=== PATIENT | female | born 1960 | race Hispanic/Latino ===

== ENCOUNTER 2019-05-19 09:50 | Day surgery (SDC) | payer MEDICARE ==
--- NOTE | 2019-05-19 09:37 | Short Stay Summary ---
Short Stay Documentation Date of service: 05/19/19 - History H&P: obtained from office - Allergies and Medications Current Medications: Allergies No Known Allergies Allergy (Verified 05/09/19 18:04) Home Medications Medication Instructions Recorded Confirmed Last Taken Type ALBUTEROL Inhaler (OR & NICU) INHALATION PRN 05/09/19 Unknown History Atomoxetine HCl 25 mg PO BID 05/09/19 05/09/19 Unknown History Atorvastatin 20 mg PO DAILY 05/09/19 05/09/19 Unknown History Budesonide/Formoterol Fumarate 4.5 mcg INHALATION BID 05/09/19 05/09/19 Unknown History [Symbicort 160-4.5 Mcg Inhaler] Celecoxib [celeBREX] 200 mg PO DAILY 05/09/19 05/09/19 Unknown History Citalopram 40 mg PO DAILY 05/09/19 05/09/19 Unknown History Fish Oil 3,000 mg PO DAILY 05/09/19 05/09/19 Unknown History Gabapentin 300 mg PO TID 05/09/19 05/09/19 Unknown History Multi For Her 50 Plus Softgel 50 mg PO DAILY 05/09/19 05/09/19 Unknown History Omeprazole 40 mg PO DAILY 05/09/19 05/09/19 Unknown History Promethazine 25 mg PO PRN 05/09/19 05/09/19 Unknown History Remeron 30mg TAB 30 mg HS 05/09/19 05/09/19 Unknown History Senna 2 tab PO HS 05/09/19 05/09/19 Unknown History Zanaflex 4mg TAB 4 mg PO DAILY 05/09/19 05/09/19 Unknown History Zyrtec 10mg tab 10 mg PO DAILY 05/09/19 05/09/19 Unknown History buPROPion 300 mg PO DAILY 05/09/19 05/09/19 Unknown History busPIRone 1 mg PO DAILY 05/09/19 05/09/19 Unknown History busPIRone 5 mg PO DAILY 05/09/19 05/09/19 Unknown History clonazePAM 1 mg PO BID 05/09/19 05/09/19 Unknown History oxyCODONE 30 mg PO 4XD 05/09/19 05/09/19 Unknown History - Brief post op/procedure progress note Date of procedure: 05/19/19 Pre-op diagnosis: bladder lesion Procedure: cysto rpg; bx small lesior right intramural ureter biopsy post right and left wall Anesthesia: GETA Findings: tiny papillary lesion over right intramural ureter Surgeon: KATHERIN POTTS Estimated blood loss: minimal Pathology: list Specimen disposition: to lab Condition: stable - Hospital course Hospital course: or pacu home - Disposition Condition at discharge: Good Disposition: DC-01 TO HOME OR SELFCARE Short Stay Discharge Plan Activity: advance as tolerated Diet: advance as tolerated Follow up with: KATHERIN POTTS MD [Staff Physician] - 14 Days
[2019-05-19] MEDS ORDERED: ceFAZolin/STERILE WATER 2 GM/20 ML SYRINGE IV NR (10:18)
[2019-05-19] MEDS ORDERED: LACTATED RINGERS 1,000 ML ONE (10:41)
--- NOTE | 2019-05-19 10:47 | Anesthesia Consultation ---
Anesthesia Consult and Med Hx Date of service: 05/19/19 - Airway Anesthetic Teeth Evaluation: Poor (multiple missing teeth), Chipped (broken left upper premolar) ROM Head & Neck: Adequate Mental/Hyoid Distance: Adequate Mallampati Class: Class I Intubation Access Assessment: Good - Pulmonary Exam CTA: Yes - Cardiac Exam Cardiac Exam: RRR - Pre-Operative Health Status ASA Pre-Surgery Classification: ASA2 Proposed Anesthetic Plan: General - Pulmonary Hx Smoking: No Hx Asthma: Yes Hx Respiratory Symptoms: No Hx Sleep Apnea: Yes (compliant with CPAP) - Cardiovascular System Hx Hypertension: No (asymptomatic hypotension) Hx Cardia Arrhythmia: Yes (asymptomatic bradycardia) Hx Pacemaker: No - Central Nervous System CVA: No Hx Back Pain: Yes (and neck; fibromyalgia) Hx Psychiatric Problems: Yes (depression/anxiety, takes clonazepam daily) - Gastrointestinal Hx Gastroesophageal Reflux Disease: Yes (controlled) - Endocrine Hx Renal Disease: No Hx Liver Disease: No Hx Insulin Dependent Diabetes: No Hx Non-Insulin Dependent Diabetes: No Hx Thyroid Disease: No - Hematic Hx Anemia: No - Other Systems Hx Obesity: Yes (BMI 32) - Additional Comments Anesthesia Medical History Comments: No hx anesthetic complications. Used albuterol daily for "maintenance" and symbicort prn but admits she may have misunderstood prescriptions. No recent asthma symptoms.
[2019-05-19] MEDS ORDERED: fentaNYL 100 MCG/2 ML INJ IV PRN (10:48)
--- NOTE | 2019-05-19 10:48 | Anesthesia Day of Surgery ---
Anesthesia Day of Surgery - Day of Surgery Patient Examined: Yes Patient H&P Reviewed: Yes Patient is NPO: Yes
[2019-05-19] MEDS ORDERED: LACTATED RINGERS 1,000 ML IV SCH (11:00)
[2019-05-19] MEDS ORDERED: MIDAZOLAM 2 MG/2 ML INJ IV NR (11:00)
[2019-05-19] MEDS ORDERED: LIDOCAINE MPF (2%) 20 MG/1 ML VIAL 5 ML ONE (12:20)
[2019-05-19] MEDS ORDERED: fentaNYL 100 MCG/2 ML INJ ONE (12:21)
[2019-05-19] MEDS ORDERED: PROPOFOL 200 MG/20 ML VIAL IV ONE (12:21)
--- NOTE | 2019-05-19 13:49 | Fluoroscopy Report ---
INTRAOPERATIVE FLUOROSCOPY: RETROGRADE UROGRAPHY INDICATION: NEOPLASM OF BLADDER. TECHNIQUE: Intraoperative spot images were obtained during the procedure. FINDINGS: Limited spot fluoroscopy demonstrates unremarkable opacification of the renal collecting system and u reters. No distinct bladder mass is seen on the submitted images. Please see the procedure report for further details. Fluoroscopy Time: 24 seconds. Fluoroscopy Images: 10. Signer Name: Alex Barnett MD Signed: 05/19/2019 1:44 PM Workstation Name: [id number]
--- NOTE | 2019-05-19 17:29 | Post Anesthesia Evaluation ---
- Post Anesthesia Evaluation Patient Participated: Yes Airway Patent: Yes Stable Respiratory Function: Yes Nausea/Vomiting: No Temp > 96.8F: Yes Pain Manageable: Yes Adequeate Hydration: Yes Anesthesia Complications: No Block Receding Appropriately: Not Applicable Patient on Ventilator: No
[2019-05-19 19:57] VITALS: BP 128/74
== END 2019-05-19 09:51 | disposition home or self-care (01) ==
LOC: OR 09:50
PROVIDERS: ATTEND Urology
DX: N32.89 Other specified disorders of bladder (principal); R31.29 Other microscopic hematuria; I42.9 Cardiomyopathy, unspecified; E78.00 Pure hypercholesterolemia, unspecified; I10 Essential (primary) hypertension; M79.7 Fibromyalgia; M06.9 Rheumatoid arthritis, unspecified; F32.9 Major depressive disorder, single episode, unspecified; F41.9 Anxiety disorder, unspecified; J45.909 Unspecified asthma, uncomplicated; G47.30 Sleep apnea, unspecified; K21.9 Gastro-esophageal reflux disease without esophagitis; E66.9 Obesity, unspecified; Z68.32 Body mass index [BMI] 32.0-32.9, adult; Z90.710 Acquired absence of both cervix and uterus; Z79.899 Other long term (current) drug therapy; Z87.440 Personal history of urinary (tract) infections; Z98.890 Other specified postprocedural states
CPT/HCPCS: 52204; 74420; 82962; 88305; J0690; J2250; J2704; J3010; J7120; Q9967